=== PATIENT | female | born 1990 | race Two or more races ===

== ENCOUNTER 2018-01-10 12:00 | Inpatient (IN) | payer OTHER ==
[~2018-01-10] VITALS: Ht 152.4 cm; Wt 68.9 kg
[2018-01-10] MEDS ORDERED: [UNRECOGNIZED DRUG - OTHER] PO (14:29)
[2018-01-15] MEDS ORDERED: ZYRTEC10 MG PO (09:40)
== END 2018-01-17 18:23 | disposition home or self-care (01) | DRG 766 ==
LOC: LDR 12:00 → O/R 01-15 08:48 → OB/GYN 01-15 08:48
PROVIDERS: Obstetrics & Gynecology
PROC: 0UL70ZZ Occlusion of Bilateral Fallopian Tubes, Open Approach (ICD-10-PCS; 2018-01-15)
PROC: 4A1HXCZ Monitoring of Products of Conception, Cardiac Rate, External Approach (ICD-10-PCS; 2018-01-15)
PROC: 10D00Z1 Extraction of Products of Conception, Low, Open Approach (ICD-10-PCS; principal; 2018-01-15 09:00)
DX: O64.1XX0 Obstructed labor due to breech presentation, not applicable or unspecified (principal); O99.824 Streptococcus B carrier state complicating childbirth; Z3A.39 39 weeks gestation of pregnancy; Z37.0 Single live birth; Z30.2 Encounter for sterilization